=== PATIENT | female | born 1965 | race Two or more races ===

== ENCOUNTER 2025-04-15 15:42 | Inpatient (IN) | payer MEDICAID, OTHER ==
[~2025-04-15] VITALS: Ht 162.6 cm; Wt 112.0 kg
--- NOTE | 2025-04-15 16:01 | ED.PDOC ---
GI ASSESSMENT HPI Comments 59 y/o F, BIBA, with PMHx of DM, HTN, CVA, and thyroid disease presents to the ED for CC of nausea. Patient states, she has been experiencing symptoms of nausea and vomiting following taking Wegovy, at midnight today (04/15/25). Patient denies abdominal pain, melena, constipation, or hematemesis. No other associated symptoms, modifiers, recent injuries or sick contacts present at this time. 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 Family History Family History: Unknown Social History Smoker: Non-Smoker Alcohol: Denies ETOH Use Drugs: Denies Drug Use Lives In: Home Constitutional: denies: chills, diaphoresis, fatigue, fever, malaise, sweats, weakness, others EENTM: denies: blurred vision, double vision, ear bleeding, ear discharge, ear drainage, ear pain, ear ringing, eye pain, eye redness, hearing loss, mouth pain, mouth swelling, nasal discharge, nose bleeding, nose congestion, nose pain, photophobia, tearing, throat pain, throat swelling, voice changes, others Respiratory: denies: cough, hemoptysis, orthopnea, SOB at rest, shortness of breath, SOB with excertion, stridor, wheezing, others Cardiovascular: denies: chest pain, dizzy spells, diaphoresis, Dyspnea on exertion, edema, irregular heart beat, left arm pain, lightheadedness, palpitations, PND, syncope, others Gastrointestinal: reports: nausea, vomiting; denies: abdomen distended, abdominal pain, blood streaked bowels, constipated, diarrhea, dysphagia, difficulty swallowing, hematemesis, melena, poor appetite, poor fluid intake, rectal bleeding, rectal pain, others Genitourinary: denies: abnormal vagina bleeding, burning, dyspareunia, dysuria, flank pain, frequency, hematuria, incontinence, pain, , vagina discharge, urgency, others Neurological: denies: dizziness, fainting, headache, left sided numbness, left sided weakness, numbness, paresthesia, pre-existing deficit, right sided numbness, right sided weakness, seizure, speech problems, tingling, tremors, weakness, others Musculoskeletal: denies: back pain, gout, joint pain, joint swelling, muscle pain, muscle stiffness, neck pain, others Integumetry: denies: bruises, change in color, change in hair/nails, dryness, laceration, lesions, lumps, rash, wounds, others Allergic/Immunocompromised: denies: Difficulty Healing, Frequent Infections, Hives, Itching, others Hematologic/Lymphatic: denies: anemia, blood clots, easy bleeding, easy bruising, swollen glands, others Endocrine: denies: excessive hunger, excessive sweating, excessive thirst, excessive urination, flushing, intolerance to cold, intolerance to heat, unexplained weight gain, unexplained weight loss, others Psychiatric: denies: anxiety, bipolar disorder, depression, hopeless, panic disorder, schizophrenia, sleepless, suicidal, others All Other Systems: Reviewed and Negative Physical Exam General Appearance: Moderate Distress HEENT: Normal ENT Inspection, Pharynx Normal, TMs Normal Neck: Full Range of Motion, Non-Tender, Normal, Normal Inspection Respiratory: Chest Non-Tender, Lungs Clear, No Accessory Muscle Use, No Respiratory Distress, Normal Breath Sounds Cardiovascular: No Edema, No JVD, No Murmur, No Gallop, Normal Peripheral Pulses, Regular Rate/Rhythm Breast Exam: Deferred Gastrointestinal: Diffuse, No Organomegaly, No Pulsatile Mass, Normal Bowel Sounds, Soft, Tenderness Genitalia: Deferred Pelvic: Deferred Rectal: Deferred Extremities: No calf tenderness, Normal capillary refill, Normal inspection, Normal range of motion, Non-tender, No pedal edema Musculoskeletal : Apperance: Normal Neurologic: Alert, 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 Was a procedure done?: No GI differential Dx Differential Diagnosis: Gastritis/PUD, Gastroenteritis, Diabetes/ DKA, Drug toxicity, Electrolyte Imbalance, Bacterial, Viral X-Ray, Labs, Meds, VS Vital Signs Date Time Temp Pulse Resp B/P (MAP) Pulse Ox O2 Delivery O2 Flow Rate FiO2 04/15/25 16:11 113 19 95 Room Air* 0 21 04/15/25 16:11 98.4 113 19 141/96 (111) 95 98.4 04/15/25 15:48 98.9 122 18 170/98 99 98.9 Lab Test 04/15/25 16:06 04/15/25 16:03 Range/Units Urine Color Light-yellow Yellow Urine Clarity Clear Clear Urine pH 7.0 5.0-9.0 Urine Specific [place] 1.007 1.001-1.035 Urine Protein Trace H Negative Urine Ketones Negative Negative Urine Blood Negative Negative /uL Urine Nitrite Negative Negative Urine Bilirubin Negative Negative Urine Urobilinogen Normal Negative mg/dL Urine Leukocyte Esterase Negative Negative /uL Urine RBC <1 0 - 4 /hpf Urine Microscopic WBC 1 0-5 /HPF Urine Squamous Epithelial Cells Few <5 /hpf Urine Bacteria Few H None Seen /hpf Urine Glucose Normal Normal mg/dL White Blood Count 11.5 H 4.4-10.8 10^3/uL Red Blood Count 5.53 H 4.0-5.20 10^6/uL Hemoglobin 16.5 H 12.2-16.2 g/dL Hematocrit 47.4 H 36.0-46.0 % Mean Corpuscular Volume 85.7 80.0-100.0 fL Mean Corpuscular Hemoglobin 29.8 28.0-32.0 pg Mean Corpuscular Hemoglobin Concent 34.8 32.0-36.0 g/dL Red Cell Distribution Width 12.4 11.8-14.3 % Platelet Count 276 140-450 10^3/uL Mean Platelet Volume 7.7 6.9-10.8 fL Neutrophils (%) (Auto) 81.1 H 37.0-80.0 % Lymphocytes (%) (Auto) 13.6 10.0-50.0 % Monocytes (%) (Auto) 3.6 0.0-12.0 % Eosinophils (%) (Auto) 1.4 0.0-7.0 % Basophils (%) (Auto) 0.3 0.0-2.0 % Neutrophils # (Auto) 9.4 H 1.6-8.6 10 ^3/uL Lymphocytes # (Auto) 1.6 0.4-5.4 10 ^3/uL Monocytes # (Auto) 0.4 0-1.3 10 ^3/uL Eosinophils # (Auto) 0.2 0-0.8 10 ^3/uL Basophils # (Auto) 0 0-0.2 10 ^3/uL Nucleated Red Blood Cells 0.3 % Sodium Level 141 136-145 mmol/L Potassium Level 4.0 3.5-5.1 mmol/L Chloride Level 102 98-107 mmol/L Carbon Dioxide Level 28 20-31 mmol/L Anion Gap 11 5-15 Blood Urea Nitrogen 8 L 9-23 mg/dL Creatinine 0.66 0.550-1.02 mg/dL Glomerular Filtration Rate Calc 102 >90 mL/min BUN/Creatinine Ratio 12.1 10.0-20.0 Serum Glucose 115 H 74-106 mg/dL Calcium Level 10.2 8.7-10.4 mg/dL Current Medications Medications (Trade) Dose Ordered Sig/Wanda Route Start Time Stop Time Status Last Admin Sodium Chloride 500 ml @ 500 mls/hr Q1H ONCE IV 04/15/25 16:00 04/15/25 16:59 DC 04/15/25 16:08 CT ABD PEL: IMPRESSION: 1. Significant enlargement of the presumed uterus and/or adnexa with soft tissue density measuring up to 10.3 cm. 2. Recommend further evaluation with dedicated ultrasound of the pelvis consider follow-up MRI of the pelvis with and without contrast 3. Layering cholelithiasis. The patient had an IV Hep-Lock established The patient was given normal saline at a 500 cc bolus The patient's CBC shows an elevated white blood cell count of 11.5 The chemistry panel is within normal limits The urine test is negative At this time, the patient will be admitted to the hospitalist. There is a concern that the patient has cholelithiasis and intractable pain and vomiting The patient is being admitted Images Reviewed?: Images reviewed and evaluated by me Time of 1ST Reevaluation: 16:20 Reevaluation 1ST: Unchanged Patient Education/Counseling: Diagnosis, Treatment, Prognosis Family Education/Counseling: No Family Present SEPSIS Sepsis Screen Date sepsis recognized/suspect: Apr 15, 2025 Time Sepsis recognized/suspect: 1548 Recent Procedure: No On Antibiotic Therapy: No Respiratory Rate >20: No Heart Rate >90: Yes Temp<36 C (96.8 F) or >38.3 C: No SBP <90 or MAP <65 mmHG: No New Acute Mental Status Change: No Is the patient on CPAP, BIPAP,: No Physician Orders Heplock Iv (04/15/25 15:54) Ct Ab Pel Wo Con-No Oral Or Iv (04/15/25 15:57) Vital Signs Date Time Temp Pulse Resp B/P (MAP) Pulse Ox O2 Delivery O2 Flow Rate FiO2 04/15/25 16:11 113 19 95 Room Air* 0 21 04/15/25 16:11 98.4 113 19 141/96 (111) 95 98.4 04/15/25 15:48 98.9 122 18 170/98 99 98.9 Laboratory Tests Test 04/15/25 16:03 White Blood Count 11.5 10^3/uL (4.4-10.8) H Medications Medications Dose Ordered Sig/Wanda Route Start Time Stop Time Status Last Admin Dose Admin Sodium Chloride 500 ml @ 500 mls/hr Q1H ONCE IV 04/15/25 16:00 04/15/25 16:59 DC 04/15/25 16:08 Departure 1 Departure Time of Disposition: 17:59 Impression: Primary Impression: Intractable abdominal pain Additional Impressions: Acute vomiting Cholelithiasis Qualified Codes: K80.20 - Calculus of gallbladder without cholecystitis without obstruction Disposition: ADMITTED INPATIENT Admit to: Med Surg Condition: Fair Critical Care Note Critical Care Time?: No Stability Stability form required: Yes Unstable for transfer: ED Physician Assesment (Clinical assesment) Heart Score Heart Score: Heart Score Response (Comments) Value History N/A 0 EKG N/A 0 Age N/A 0 Risk Factors N/A 0 Troponin N/A 0 Total 0 I personally scribed for IESHA HILLIARD MD ([email or web address]) on 04/15/25 at 16:01. Electronically submitted by Julita Christie [email or web address]). I personally scribed for IESHA HILLIARD MD ([email or web address]) on 04/15/25 at 17:17. Electronically submitted by Julita Christie ([email or web address]). I personally scribed for IESHA HILLIARD MD ([email or web address]) on 04/15/25 at 17:20. Electronically submitted by Julita Christie [email or web address]). IESHA HILLIARD MD Apr 15, 2025 16:01
[2025-04-15] MEDS: SODIUM CHLORIDE 0.9% 500 ML IV ONE ×2 (16:08→21:00)
[2025-04-15 16:11] VITALS: PULSE 113; RESP 19; O2SAT 95
[2025-04-15 16:20] LABS: Hematocrit 47.4 % (36.0-46.0); Hemoglobin 16.5 g/dL (12.2-16.2); Mean Corpuscular Hemoglobin 29.8 pg (28.0-32.0); Mean Corpuscular Volume 85.7 fL (80.0-100.0); Nucleated Red Blood Cells % 0.3 %
[2025-04-15 16:28] LABS: Chloride 102 mmol/L (98-107); Potassium 4.0 mmol/L (3.5-5.1); Sodium 141 mmol/L (136-145)
[2025-04-15 16:29] LABS: Anion Gap 11 (5-15); Calcium 10.2 mg/dL (8.7-10.4); Carbon Dioxide 28 mmol/L (20-31)
[2025-04-15 16:34] LABS: BUN/Creatinine Ratio 12.1 (10.0-20.0)
--- NOTE | 2025-04-15 16:56 | DVH ---
EXAM: CT CT AB PEL WO CON-NO ORAL OR IV INDICATION: pain TECHNIQUE: Volumetric multidetector CT images of the abdomen and pelvis were obtained without contras t. All CT scans at this facility use dose modulation, iterative reconstruction, and/or weight based d osing when appropriate to reduce radiation dose to as low as reasonably achievable. COMPARISON: None FINDINGS: [LOWER CHEST]: The partially visualized lung bases are clear without a pleural effusion. The cardiac size is normal without pericardial effusion. [LIVER]: Normal hepatic size without suspicious focal lesion. [GALLBLADDER AND BILIARY TREE]: Layering cholelithiasis. [SPLEEN]: Unremarkable. [PANCREAS]: Unremarkable. [ADRENAL GLANDS]: Unremarkable [KIDNEYS]: No hydronephrosis. No nephroureterolithiasis. [BLADDER]: Decompressed [REPRODUCTIVE ORGANS]: Significant enlargement of the presumed uterus and/or adnexa with soft tissue density measuring approximately 8.8 x 10.3 x 7.8 cm. Mild stool burden. [BOWEL/MESENTERY]: Stomach is normal. No CT evidence of bowel obstruction. Mild stool burden. [ASCITES]: Absent [LYMPHADENOPATHY]: No pathologically enlarged lymph nodes by CT size criteria [VASCULATURE]: No aneurysmal dilatation. vascular calcifications. [ABDOMINAL WALL]: Unremarkable. [MUSCULOSKELETAL]: No acute fracture or aggressive focal osseous lesion. Multifocal degenerative sorenson ge of the visualized spine. transitional anatomy with sacralization of the L5. IMPRESSION: 1. Significant enlargement of the presumed uterus and/or adnexa with soft tissue density measuring up to 10.3 cm. 2. Recommend further evaluation with dedicated ultrasound of the pelvis consider follow-up MRI of the pelvis with and without contrast 3. Layering cholelithiasis.
[2025-04-15 17:07] LABS: Blood Urea Nitrogen 8 mg/dL (9-23); Glucose 115 mg/dL (74-106)
[2025-04-15 17:38] LABS: Urine Protein, UAD TRACE (Negative)
--- NOTE | 2025-04-15 20:59 | DVHHPRES ---
History of Present Illness Resident Creating Document: ALYSSA FLORES RESIDENT History of Present Illness Ms. Mackenzie Is a 59-year-old female with a prior medical history of ischemic stroke in 2007, hypertension, hyperthyroidism, obesity on WeGovy, and type 2 diabetes mellitus, who presents today with chief complaint of nausea and vomiting. The patient's refers persistent nausea and vomiting since 7 am. She states she has been unable to keep anything down all day. Additionally refers minor cramp like generalized abdominal pain, 5/10 in intensity, without aggravating or relieving factors. She denies fever, bowel movements, diarrhea, palpitations, bloody vomit, bloody bowel movements, chest pain, exposure to sick contacts or contaminated food. Due to persistence of emetic episodes, she sought medical attention at the emergency department. On evaluation in the ED, she was afebrile, tachycardic, and hypertensive. Initial labs show leukocytosis with neutrophilia, signs of dehydration, and hyperglycemia. UA shows no significant findings. Abdomen/pelvis CT shows enlargement of the presumed uterus and/or adnexa was soft tissue density measuring up to 10.3 cm and layering cholelithiasis. The patient placed on NPO, started on IV fluids, IV antiemetic medication, and IV antibiotics. She was admitted for further workup and management. Prior medical history: Ischemic stroke in 2007, hypertension, hyperthyroidism, type 2 diabetes mellitus Surgical history: three C sections Allergies: Denies Social history: Denies drug, alcohol, and tobacco use. States she lives with her mother and feels safe. Review of Systems Review of Systems Constitutional: Denies weight loss, fever and chills. HEENT: Denies changes in vision and hearing. Respiratory: Denies shortness of breath and cough Cardiovascular: Denies chest discomfort or palpitations GI: Refers nausea, vomiting, and mild abdominal pain, Denies abdominal distention, diarrhea : Denies dysuria and urinary frequency. Musculoskeletal: Denies symptoms Skin: Denies rash and pruritus. Neurological: denies headache vision or hearing problems Allergies: Coded Allergies: NO KNOWN ALLERGIES (Unverified , 04/15/25) Exam Vital Signs Vital Signs Date Time Temp Pulse Resp B/P (MAP) Pulse Ox O2 Delivery O2 Flow Rate FiO2 04/15/25 16:11 113 19 95 Room Air* 0 21 04/15/25 16:11 98.4 141/96 (111) 98.4 Exam General: The patient alert and oriented in person place and time. Patient following commands HEENT: Normocephalic, atraumatic, normal reactive pupils, EOM intact, pink conjunctiva, pink dry mucous membrane Respiratory/pulmonary: Bilateral chest expansion, no pain on palpation of chest wall, clear lungs bilaterally, vesicular murmurs present in almost all lung trejo, no associated crackles or wheezes. Cardiovascular: Tachycardia, Normal RRR, normal S1 and S2, no murmurs Abdomen: Obese, Abdomen nondistended, hyperactive bowel sounds, soft, mild pain on palpation of abdominal quadrant, no palpable masses. Extremities: No deformities, there is no peripheral edema present at the lower extremities, normal pulses Skin: No rashes or pruritus, there is no sacral edema present at this time. Neurological: Intact cranial nerves with no focal neurologic deficits Labs/Xrays Labs Test 04/15/25 16:06 04/15/25 16:03 Range/Units Urine Color Light-yellow Yellow Urine Clarity Clear Clear Urine pH 7.0 5.0-9.0 Urine Specific [place] 1.007 1.001-1.035 Urine Protein Trace H Negative Urine Ketones Negative Negative Urine Blood Negative Negative /uL Urine Nitrite Negative Negative Urine Bilirubin Negative Negative Urine Urobilinogen Normal Negative mg/dL Urine Leukocyte Esterase Negative Negative /uL Urine RBC <1 0 - 4 /hpf Urine Microscopic WBC 1 0-5 /HPF Urine Squamous Epithelial Cells Few <5 /hpf Urine Bacteria Few H None Seen /hpf Urine Glucose Normal Normal mg/dL White Blood Count 11.5 H 4.4-10.8 10^3/uL Red Blood Count 5.53 H 4.0-5.20 10^6/uL Hemoglobin 16.5 H 12.2-16.2 g/dL Hematocrit 47.4 H 36.0-46.0 % Mean Corpuscular Volume 85.7 80.0-100.0 fL Mean Corpuscular Hemoglobin 29.8 28.0-32.0 pg Mean Corpuscular Hemoglobin Concent 34.8 32.0-36.0 g/dL Red Cell Distribution Width 12.4 11.8-14.3 % Platelet Count 276 140-450 10^3/uL Mean Platelet Volume 7.7 6.9-10.8 fL Neutrophils (%) (Auto) 81.1 H 37.0-80.0 % Lymphocytes (%) (Auto) 13.6 10.0-50.0 % Monocytes (%) (Auto) 3.6 0.0-12.0 % Eosinophils (%) (Auto) 1.4 0.0-7.0 % Basophils (%) (Auto) 0.3 0.0-2.0 % Neutrophils # (Auto) 9.4 H 1.6-8.6 10 ^3/uL Lymphocytes # (Auto) 1.6 0.4-5.4 10 ^3/uL Monocytes # (Auto) 0.4 0-1.3 10 ^3/uL Eosinophils # (Auto) 0.2 0-0.8 10 ^3/uL Basophils # (Auto) 0 0-0.2 10 ^3/uL Nucleated Red Blood Cells 0.3 % Sodium Level 141 136-145 mmol/L Potassium Level 4.0 3.5-5.1 mmol/L Chloride Level 102 98-107 mmol/L Carbon Dioxide Level 28 20-31 mmol/L Anion Gap 11 5-15 Blood Urea Nitrogen 8 L 9-23 mg/dL Creatinine 0.66 0.550-1.02 mg/dL Glomerular Filtration Rate Calc 102 >90 mL/min BUN/Creatinine Ratio 12.1 10.0-20.0 Serum Glucose 115 H 74-106 mg/dL Calcium Level 10.2 8.7-10.4 mg/dL SEPSIS Sepsis Screen Date sepsis recognized/suspect: Apr 15, 2025 Time Sepsis recognized/suspect: 1548 Recent Procedure: No On Antibiotic Therapy: No Respiratory Rate >20: No Heart Rate >90: Yes Temp<36 C (96.8 F) or >38.3 C: No SBP <90 or MAP <65 mmHG: No New Acute Mental Status Change: No Is the patient on CPAP, BIPAP,: No Physician Orders Heplock Iv (04/15/25 15:54) Ct Ab Pel Wo Con-No Oral Or Iv (04/15/25 15:57) Blood Culture (04/15/25 20:25) Magnesium (04/15/25 20:25) Drug Screen (04/15/25 20:25) Hepatic Panel (04/15/25 20:25) Complete Blood Count (04/16/25 04:00) Basic Metabolic Panel (04/16/25 04:00) Lactic Acid W/ Reflex Order (04/15/25 20:25) Phosphorus (04/15/25 20:25) Thyroid Stimulating Hormone (04/15/25 20:25) Vitamin B12 (04/15/25 20:25) Vitamin D, 25-Hydroxy (04/15/25 20:25) Hemoglobin A1c (04/15/25 20:25) Admit (04/15/25 20:48) Allergies (04/15/25 20:48) Code Status (04/15/25 20:48) Npo (Nothing By Mouth) Diet (04/16/25 Breakfast) Condition: Stable (04/15/25 20:48) Stat Ekg For Chest Pain (04/15/25 20:48) Notify Md Of Changes From Base (04/15/25 20:48) Emergency Dysrhythmia Protocol (04/15/25 20:48) Rhythm Strips Once Every Shift (04/15/25 20:48) NS (04/15/25 21:00) NS (04/15/25 21:00) Ketorolac Injection (Toradol Injection) (04/15/25 21:00) Ondansetron Hcl (Zofran) (04/15/25 21:00) Ondansetron Hcl (Zofran) (04/15/25 21:00) Pantoprazole (Protonix) (04/15/25 21:00) Pantoprazole (Protonix) (04/16/25 10:00) Ob Trans Vaginal Us (04/15/25 20:48) Enoxaparin Sodium (Lovenox) (04/15/25 22:00) Propranolol Hcl Tablet (Inderal Tablet) (04/16/25 10:00) Hydralazine Hcl Tablet (Apresoline Table (04/15/25 22:00) Vital Signs Date Time Temp Pulse Resp B/P (MAP) Pulse Ox O2 Delivery O2 Flow Rate FiO2 04/15/25 16:11 113 19 95 Room Air* 0 21 04/15/25 16:11 98.4 113 19 141/96 (111) 95 98.4 04/15/25 15:48 98.9 122 18 170/98 99 98.9 Laboratory Tests Test 04/15/25 16:03 White Blood Count 11.5 10^3/uL (4.4-10.8) H Medications Medications Dose Ordered Sig/Wanda Route Start Time Stop Time Status Last Admin Dose Admin Sodium Chloride 500 ml @ 500 mls/hr Q1H ONCE IV 04/15/25 16:00 04/15/25 16:59 DC 04/15/25 16:08 500 MLS/HR Assessment/Plan Assessment/Plan Assessment and Plan: Acute Infectious Gastroenteritis Dehydration secondary to above - NS 500 cc IV Bolus x 2 - NS 100 c/hr maintenance - Metronidazole 500 mg IV q8 hours - Ceftriaxone 1 g IV daily - Zofran IV q 4 hours PRN - NPO Possible Uterine Mass - Abdomen/pelvis CT: Significant enlargement of the presumed uterus and/or adnexa was soft tissue density measuring up to 10.3 cm - Transvaginal ultrasound ordered Cholelithiasis without Cholecystitis - Abdomen/pelvis CT: Layering cholelithiasis Hypertension - Continue Propranolol 80 mg PO daily - Continue Hydralazine 50 mg p.o. t.i.d. Type 2 Diabetes Mellitus, HbA1c 4.9 - Mild SSI - Accu-cheks - Consistent Carbohydrate Diet once NPO lifted Hyperthyroidism Rule out Hyperthyroidism crisis - Continue Methimazole 5 mg PO daily - Ordered TSH History of Ischemic Stroke - On Eliquis - Enoxaparin Therapeutic Dose (1 mg/kg) Morbid Obesity, BMI 43.5 kg/m2 - Jermaine - I have counseled the patient on healthy lifestyle modifications Diet: NPO DVT prophylaxis: Patient is on Lovenox therapeutic dose GI prophylaxis: Protonix 40 mg IV daily Case discussed with Dr. Lance Goals of care discussed with the patient for over 25 minutes. Full code. Plan discussed with: Patient, Other (Nurses) My Orders Orders - ALYSSA FLORES RESIDENT Procedure Category Date Status Time Blood Culture RADHA 04/15/25 Logged 20:25 Magnesium LAB 04/15/25 In Process 20:25 Drug Screen LAB 04/15/25 In Process 20:25 Hepatic Panel LAB 04/15/25 In Process 20:25 Complete Blood Count LAB 04/16/25 Verified 04:00 Basic Metabolic Panel LAB 04/16/25 Verified 04:00 Lactic Acid W/ Reflex LAB 04/15/25 Logged Order 20:25 Phosphorus LAB 04/15/25 In Process 20:25 Thyroid Stimulating LAB 04/15/25 In Process Hormone 20:25 Vitamin B12 LAB 04/15/25 In Process 20:25 Vitamin D, 25-Hydroxy LAB 04/15/25 In Process 20:25 Hemoglobin A1c LAB 04/15/25 In Process 20:25 Admit ADMIT 04/15/25 Verified 20:48 Allergies ZEUS 04/15/25 Verified 20:48 Code Status CODE 04/15/25 Verified 20:48 Npo (Nothing By DIET 04/16/25 Verified Mouth) Diet Breakfast Condition: Stable ZEUS 04/15/25 Verified 20:48 Stat Ekg For Chest ZEUS 04/15/25 Verified Pain 20:48 Notify Md Of Changes [facility] 04/15/25 Verified From Base 20:48 Emergency Dysrhythmia ZEUS 04/15/25 Verified Protocol 20:48 Rhythm Strips Once ZEUS 04/15/25 Verified Every Shift 20:48 NS PHA 04/15/25 Verified 21:00 NS PHA 04/15/25 Verified 21:00 Ketorolac Injection PHA 04/15/25 Verified (Toradol Injection) 21:00 Ondansetron Hcl PHA 04/15/25 Verified (Zofran) 21:00 Ondansetron Hcl PHA 04/15/25 Verified (Zofran) 21:00 Pantoprazole PHA 04/15/25 Verified (Protonix) 21:00 Pantoprazole PHA 04/16/25 Verified (Protonix) 10:00 Ob Trans Vaginal Us US 04/15/25 Verified 20:48 Enoxaparin Sodium PHA 04/15/25 Verified (Lovenox) 22:00 Propranolol Hcl PHA 04/16/25 Verified Tablet (Inderal 10:00 Hydralazine Hcl PHA 04/15/25 Verified Tablet (Apresoline 22:00 Date of Service: Apr 15, 2025 Billing Provider: KITA BYRD MD Common Visit Codes: 24902-NHYEKIK INP/OBS CARE (HIGH) Secondary Visit Codes: 69898-EAJJAWOD CARE PLAN 30 MINUTES ALYSSA FLORES RESIDENT Apr 15, 2025 20:59 PRASANNA PERALTA RESIDENT Apr 16, 2025 08:37
[2025-04-15] MEDS ORDERED: DEXTROSE (50%) 50ML SYRG IV PRN (21:00)
[2025-04-15 21:11] LABS: Albumin 4.5 g/dL (3.2-4.8); Alkaline Phosphatase 114.0 U/L (46-116); Bilirubin, Direct 0.3 mg/dL (<0.3); Bilirubin, Total 0.9 mg/dL (0.2-1.0); Magnesium 1.9 mg/dL (1.6-2.6); Total Protein 7.7 g/dL (5.7-8.2)
[2025-04-15 21:15] LABS: Alanine Aminotransferase 50.0 U/L (7-40)
[2025-04-15 21:45] LABS: Cannabinoid Screen, Urine Neg (NEGATIVE)
[2025-04-15 21:46] LABS: Amphetamine Screen, Urine Neg (NEGATIVE); Barbiturate Scree,Urine Neg (NEGATIVE); Benzodiazephine Screen, Urine Neg (NEGATIVE); Cocaine Screen, Urine Neg (NEGATIVE); Opiate Scree,Urine Neg (NEGATIVE); Phencyclidine Screen, Urine Neg (NEGATIVE)
[2025-04-15 21:54] LABS: Albumin 4.6 g/dL (3.2-4.8); Alkaline Phosphatase 115 U/L (46-116); Anion Gap 13 (5-15); BUN/Creatinine Ratio 16.0 (10.0-20.0); Blood Urea Nitrogen 12 mg/dL (9-23); Calcium 10.3 mg/dL (8.7-10.4); Carbon Dioxide 26 mmol/L (20-31); Chloride 102 mmol/L (98-107); Glucose 101 mg/dL (74-106); Potassium 4.5 mmol/L (3.5-5.1); Sodium 141 mmol/L (136-145); Total Protein 7.7 g/dL (5.7-8.2)
[2025-04-15 21:55] LABS: Bilirubin, Total 1.0 mg/dL (0.2-1.0)
[2025-04-15 21:56] LABS: Alanine Aminotransferase 57 U/L (7-40)
--- NOTE | 2025-04-15 22:00 | DVH ---
INDICATION: Eval possible uterine mass TECHNIQUE: Multiple real-time grayscale transabdominal sonographic images along with color and duplex Doppler of the uterus and ovaries were obtained. COMPARISON: None FINDINGS: The uterus measures 8.6 x 4.9 by 4.7 cm cm. The endometrial stripe measures 1.8 mm. Hypoech oic structure within the wall of the uterus measuring 2.3 x 1.8 x 2.5 cm may represent a fibroid. The right ovary not visible The left ovary not visible IMPRESSION: 1. Ovaries not visible 2. Exam difficult due to prolapsed bladder. 3. Bladder volume 356.3 mL.
[2025-04-15] MEDS: ONDANSETRON HCL 4 MG/2 ML VIAL IV ONE (22:40)
[2025-04-15] MEDS: PANTOPRAZOLE 40 MG/10 ML VIAL INJ IV ONE (22:40)
[2025-04-15] MEDS: ENOXAPARIN SOD 120 MG/0.8 ML SYRINGE SC ONE (22:40)
[2025-04-16] VITALS (9 sets, daily range): BP systolic 128–179; BP diastolic 80–100; PULSE 72–97; RESP 14–18; TEMP 97.6–98.2; O2SAT 90–98
[2025-04-16] MEDS: InsuLIN REG 1unit/0.01ml Soln (100units/ml) SC SCH
[2025-04-16] MEDS: ACCU-CHEK COMFORT CURVE STRIP VI SCH
[2025-04-16] MEDS: PROPRANOLOL HCL 20 MG TAB PO ONE (00:57)
[2025-04-16] MEDS: hydrALAZINE HCL 20 MG/ML VL IV ONE (01:09)
[2025-04-16] MEDS: SODIUM CHLORIDE 0.9% 1,000 ML IV SCH (02:00)
[2025-04-16] MEDS: KETOROLAC TROMETH 30 MG/ML 1ML VIAL IV PRN (03:56)
[2025-04-16 07:37] LABS: Hematocrit 42.9 % (36.0-46.0); Hemoglobin 14.9 g/dL (12.2-16.2); Mean Corpuscular Hemoglobin 30.0 pg (28.0-32.0); Mean Corpuscular Volume 86.5 fL (80.0-100.0); Nucleated Red Blood Cells % 0.1 %
[2025-04-16 07:47] LABS: Anion Gap 11 (5-15); Carbon Dioxide 26 mmol/L (20-31); Chloride 104 mmol/L (98-107); Sodium 141 mmol/L (136-145)
[2025-04-16 07:48] LABS: Calcium 9.6 mg/dL (8.7-10.4)
--- NOTE | 2025-04-16 07:52 | DVH ---
INDICATION: r/o cholecystitis. TECHNIQUE: Multiple real-time sonographic images of the abdomen were obtained. COMPARISON: None FINDINGS: The liver is increased in echogenicity. The liver measures 16.6 cm. No intrahepatic biliary ductal dilatation is noted. The gallbladder wall measures 0.2 cm and is unremarkable. There are multiple gallstones. The common duct measures 0.4 cm and is unremarkable. No pericholecystic fluid is noted. The right kidney measures 11.4 cm. No hydronephrosis. The pancreas is not well visualized due to obscuration from bowel gas. The visualized portions of the IVC and aorta are grossly unremarkable. IMPRESSION: 1. Cholelithiasis without sonographic evidence of acute cholecystitis. 2. Hepatic steatosis.
[2025-04-16 07:53] LABS: BUN/Creatinine Ratio 10.8 (10.0-20.0); Glucose 101 mg/dL (74-106)
[2025-04-16 07:54] LABS: Blood Urea Nitrogen 7 mg/dL (9-23); Potassium 3.5 mmol/L (3.5-5.1)
[2025-04-16] MEDS: PANTOPRAZOLE 40 MG/10 ML VIAL INJ IV SCH (09:22)
[2025-04-16] MEDS: methIMAzole 5 MG TAB PO SCH (09:22)
[2025-04-16] MEDS: PROPRANOLOL HCL 20 MG TAB PO SCH (09:23)
[2025-04-16] MEDS: ENOXAPARIN SOD 100 MG/1 ML SYRINGE SC SCH (09:28)
[2025-04-16 09:57] LABS: Hepatitis B Surface Antigen Negative (Negative)
[2025-04-16 10:20] LABS: Hepatitis C Antibody Negative (Negative)
[2025-04-16 10:38] LABS: Free T4 (Free Thyroxine) 1.82 ng/dL (0.89-1.76)
[2025-04-16] MEDS: ACETAMINOPHEN 325 MG TAB PO PRN (12:01)
[2025-04-16] MEDS: ENALAPRIL MALEATE 10 MG TAB PO ONE (12:02)
[2025-04-16] MEDS: hydroCHLOROthiazide 25 MG TAB PO ONE (12:02)
[2025-04-16] MEDS: ONDANSETRON HCL 4 MG/2 ML VIAL IV PRN (15:55)
--- NOTE | 2025-04-16 18:33 | DVHPNRES ---
Progress Note Date Seen: Apr 16, 2025 Resident Creating Document: KENA TURNER Medical Necessity Reason Pt with a Central, PICC or Fol: No (RN) Subjective Review of Systems 59-year-old female with a prior medical history of ischemic stroke in 2007, hypertension, hyperthyroidism, obesity on WeGovy, and type 2 diabetes mellitus, who presents today with chief complaint of nausea and vomiting. The patient reports intermittent episodes of vomiting since starting Wegovy 4 months ago at 0.6 mg weekly, with a dose increase to 1.5 mg three months ago. However, since 7:00 AM today, she has experienced persistent nausea and more than 30 episodes of non-bloody, non-bilious vomiting. She states she has been unable to tolerate any oral intake throughout the day. Additionally, she describes mild, cramp- like, generalized abdominal pain rated 5/10 in intensity, without identifiable aggravating or relieving factors. She denies fever, diarrhea, palpitations, hematemesis, hematochezia, chest pain, recent sick contacts, or ingestion of contaminated food. Due to the persistence of emetic episodes, she presented to the emergency department for evaluation. On arrival, she was afebrile, tachycardic, and hypertensive. Initial laboratory studies revealed leukocytosis with neutrophilia, signs of dehydration, and hyperglycemia. Urinalysis was unremarkable. CT of the abdomen and pelvis demonstrated an enlarged presumed uterus and/or adnexal soft tissue density measuring up to 10.3 cm, as well as layering cholelithiasis. Patient seen and examined at bedside. Patient is alert and oriented to time, place person and responding to all questions. Constitutional: Denies weight loss, fever and chills. Eyes: No Pain, No Vision change, No Conjunctivae inflammation, No Eyelid inflammation, No Other, No Redness ENT: No Ear pain, No Ear discharge, No Nose pain, No Nose discharge, No Nose congestion, No Mouth pain, No Mouth swelling, No Throat pain, No Throat swelling, No Other Cardiovascular: No Chest Pain, No Palpitations, No Orthopnea, No Paroxysmal No Dyspnea, No Edema, No Lt Headedness, No Other Respiratory: No Cough, No Dry, No Shortness of breath, No SOB with exertion, No Wheezing, No Hemoptysis, No Pleuritic Pain, No Sputum, No Other Gastrointestinal: Nausea, Vomiting, No Abdominal Pain, No Diarrhea, No Constipation, No Melena, No Hematochezia, No Other Genitourinary: No Dysuria, No Frequency, No Incontinence, No Hematuria, No Retention, No Other Musculoskeletal: No other, No neck pain, No shoulder pain, No arm pain, No back pain, No hand pain, No leg pain, No foot pain Skin: No Rash, No Lesions, No Jaundice, No Bruising, No Other Objective vital signs Vital Sign Date Time Temp Pulse Resp B/P (MAP) Pulse Ox O2 Delivery O2 Flow Rate FiO2 04/16/25 17:29 97.8 79 14 156/97 (116) 90 97.8 04/16/25 08:00 Room Air* 0 21 Total Intake and Output 04/15/25 04/15/25 04/16/25 15:00 23:00 07:00 Intake Total 500 ml 500 ml Balance 500 ml 500 ml medications Current Medications Medications Dose Ordered Sig/Wanda Route Start Time Stop Time Status Last Admin Dose Admin Ketorolac Tromethamine 15 mg Q6HPRN PRN IV 04/15/25 21:00 04/20/25 20:59 04/16/25 03:56 15 MG Ondansetron HCl 4 mg Q4HPRN PRN IV 04/15/25 21:00 04/16/25 15:55 4 MG Pantoprazole Sodium 40 mg DAILY IV 04/16/25 10:00 04/16/25 09:22 40 MG Enoxaparin Sodium 120 mg Q12HR SC 04/16/25 10:00 04/16/25 09:28 120 MG Propranolol HCl 80 mg DAILY PO 04/16/25 10:00 04/16/25 09:23 80 MG Hydralazine HCl 50 mg TID PO 04/15/25 22:00 04/16/25 14:25 50 MG Methimazole 5 mg DAILY PO 04/16/25 10:00 04/16/25 09:22 5 MG Diagnostic Test (Pha) 1 strip Q6HR 04/16/25 00:00 04/16/25 17:25 1 STRIP Insulin Human Regular Q6HR SC 04/16/25 00:00 Dextrose 50 ml UD PRN IV 04/15/25 21:00 Metronidazole 100 ml @ 100 mls/hr Q8HR IV 04/15/25 22:00 04/16/25 14:25 100 MLS/HR Ceftriaxone Sodium 50 ml @ 100 mls/hr DAILY@09 IV 04/16/25 09:00 04/16/25 09:23 100 MLS/HR Enalapril Maleate 10 mg DAILY PO 04/17/25 10:00 Hydrochlorothiazide 25 mg DAILY PO 04/17/25 10:00 Acetaminophen 650 mg Q4HP PRN PO 04/16/25 10:30 04/16/25 17:25 650 MG Examination General: The patient alert and oriented in person place and time. Patient following commands HEENT: Normocephalic, atraumatic, normal reactive pupils, EOM intact, pink conjunctiva, pink dry mucous membrane Respiratory/pulmonary: Bilateral chest expansion, no pain on palpation of chest wall, clear lungs bilaterally, vesicular murmurs present in almost all lung trejo, no associated crackles or wheezes. Cardiovascular: Tachycardia, Normal RRR, normal S1 and S2, no murmurs Abdomen: Obese, Abdomen nondistended, hyperactive bowel sounds, soft, mild pain on palpation of abdominal quadrant, no palpable masses. Extremities: No deformities, there is no peripheral edema present at the lower extremities, normal pulses Skin: No rashes or pruritus, there is no sacral edema present at this time. Neurological: Intact cranial nerves with no focal neurologic deficits laboratory and microbiology Laboratory Tests 04/16/25 06:46 Test 04/16/25 06:46 Range/Units Serum Glucose 101 74-106 mg/dL Labs and/or images reviewed: Labs reviewed by me, Image(s) reviewed by me Problem List/Assessment/Plan Problem List/Assessment/Plan Acute intractable vomiting due to medication side effect Morbid Obesity, BMI 43.5 kg/m2 - Jermaine - I have counseled the patient on healthy lifestyle modifications Acute Infectious Gastroenteritis Dehydration secondary to above - NS 500 cc IV Bolus x 2 - NS 100 c/hr maintenance - Metronidazole 500 mg IV q8 hours - Ceftriaxone 1 g IV daily - Zofran IV q 4 hours PRN - NPO Possible Uterine Mass - Abdomen/pelvis CT: Significant enlargement of the presumed uterus and/or adnexa was soft tissue density measuring up to 10.3 cm - Transvaginal ultrasound ordered Cholelithiasis without Cholecystitis - Abdomen/pelvis CT: Layering cholelithiasis Hypertension - Continue Propranolol 80 mg PO daily - Continue Hydralazine 50 mg p.o. t.i.d. Type 2 Diabetes Mellitus, HbA1c 4.9 - Mild SSI - Accu-cheks - Consistent Carbohydrate Diet once NPO lifted Hyperthyroidism Rule out Hyperthyroidism crisis - Continue Methimazole 5 mg PO daily - Ordered TSH History of Ischemic Stroke - On Eliquis - Enoxaparin Therapeutic Dose (1 mg/kg) Diet: Soft DVT prophylaxis: Patient is on Lovenox therapeutic dose GI prophylaxis: Protonix 40 mg IV daily Goals of care: Full code, discussed for >16 minutes on 04/16/25 Plan discussed with patient Plan discussed with Dr. Stauffer Plan discussed with: Patient, Other (RN) My Orders My Orders Orders - KENA TURNER Procedure Category Date Status Time Soft Diet DIET 04/16/25 Transmitted Dinner Complete Blood Count LAB 04/17/25 Verified 04:00 Comprehensive LAB 04/17/25 Verified Metabolic Panel 04:00 Date of Service: Apr 16, 2025 Billing Provider: JOSE J STAUFFER MD Common Visit Codes: [id number] INP/OBS CARE(HIGH) KENA TURNER Apr 16, 2025 18:33 JOSE J STAUFFER MD Apr 16, 2025 18:34
[2025-04-16] MEDS: MELATONIN 5 MG TAB PO ONE (22:11)
[2025-04-17 01:00] VITALS: BP 157/88; PULSE 78; RESP 17; TEMP 97.8; O2SAT 93
[2025-04-17 05:00] VITALS: BP 160/92; PULSE 78; RESP 18; TEMP 97.7; O2SAT 93
[2025-04-17 05:42] LABS: Alanine Aminotransferase 32 U/L (7-40); Albumin 3.8 g/dL (3.2-4.8); Alkaline Phosphatase 84 U/L (46-116); Anion Gap 8 (5-15); BUN/Creatinine Ratio 11.9 (10.0-20.0); Calcium 9.3 mg/dL (8.7-10.4); Carbon Dioxide 28 mmol/L (20-31); Chloride 103 mmol/L (98-107); Sodium 139 mmol/L (136-145); Total Protein 6.4 g/dL (5.7-8.2)
[2025-04-17 05:43] LABS: Bilirubin, Total 0.9 mg/dL (0.2-1.0)
[2025-04-17 05:48] LABS: Hematocrit 40.4 % (36.0-46.0); Hemoglobin 14.1 g/dL (12.2-16.2); Mean Corpuscular Hemoglobin 29.9 pg (28.0-32.0); Mean Corpuscular Volume 85.7 fL (80.0-100.0); Nucleated Red Blood Cells % 0.0 %
[2025-04-17 05:54] LABS: Blood Urea Nitrogen 8 mg/dL (9-23); Glucose 113 mg/dL (74-106); Potassium 3.3 mmol/L (3.5-5.1)
[2025-04-17] MEDS: POTASSIUM EFFERVESENT TAB 25 MEQ PO ONE (06:55)
[2025-04-17] MEDS ORDERED: DEXTROSE (50%) 50ML SYRG IV PRN (07:15)
[2025-04-17 09:22] VITALS: BP 127/81; PULSE 81; RESP 16; TEMP 98.3; O2SAT 94
[2025-04-17] MEDS: ENALAPRIL MALEATE 10 MG TAB PO SCH (09:29)
[2025-04-17] MEDS: hydroCHLOROthiazide 25 MG TAB PO SCH (09:30)
--- NOTE | 2025-04-17 10:35 | DVHDSRES ---
Discharge Summary Date of Admission Resident Creating Document: KENA TURNER RESIDENT Apr 15, 2025 at 20:48 Date of Discharge: Apr 17, 2025 Admitting Diagnosis intractable nausea and vomiting Labs/Diagnostic Data: Laboratory Results Test 04/17/25 05:04 04/16/25 23:39 04/16/25 06:46 04/15/25 20:53 White Blood Count 7.8 10^3/uL (4.4-10.8) Red Blood Count 4.72 10^6/uL (4.0-5.20) Hemoglobin 14.1 g/dL (12.2-16.2) Hematocrit 40.4 % (36.0-46.0) Mean Corpuscular Volume 85.7 fL (80.0-100.0) Mean Corpuscular Hemoglobin 29.9 pg (28.0-32.0) Mean Corpuscular Hemoglobin Concent 34.9 g/dL (32.0-36.0) Red Cell Distribution Width 12.6 % (11.8-14.3) Platelet Count 199 10^3/uL (140-450) Mean Platelet Volume 7.5 fL (6.9-10.8) Neutrophils (%) (Auto) 75.8 % (37.0-80.0) Lymphocytes (%) (Auto) 17.2 % (10.0-50.0) Monocytes (%) (Auto) 5.2 % (0.0-12.0) Eosinophils (%) (Auto) 1.5 % (0.0-7.0) Basophils (%) (Auto) 0.3 % (0.0-2.0) Neutrophils # (Auto) 5.9 10 ^3/uL (1.6-8.6) Lymphocytes # (Auto) 1.3 10 ^3/uL (0.4-5.4) Monocytes # (Auto) 0.4 10 ^3/uL (0-1.3) Eosinophils # (Auto) 0.1 10 ^3/uL (0-0.8) Basophils # (Auto) 0 10 ^3/uL (0-0.2) Nucleated Red Blood Cells 0.0 % Sodium Level 139 mmol/L (136-145) Potassium Level 3.3 mmol/L (3.5-5.1) Chloride Level 103 mmol/L (98-107) Carbon Dioxide Level 28 mmol/L (20-31) Anion Gap 8 (5-15) Blood Urea Nitrogen 8 mg/dL (9-23) Creatinine 0.67 mg/dL (0.550-1.02) Glomerular Filtration Rate Calc 101 mL/min (>90) BUN/Creatinine Ratio 11.9 (10.0-20.0) Serum Glucose 113 mg/dL (74-106) Calcium Level 9.3 mg/dL (8.7-10.4) Total Bilirubin 0.9 mg/dL (0.2-1.0) Aspartate Amino Transferase (AST) 29 U/L (13-40) Alanine Aminotransferase (ALT) 32 U/L (7-40) Alkaline Phosphatase 84 U/L (46-116) Total Protein 6.4 g/dL (5.7-8.2) Albumin 3.8 g/dL (3.2-4.8) POC Glucose 99 mg/dl (70-106) Lipase 28 U/L (12-53) Free Thyroxine (T4) Calculated 1.82 ng/dL (0.89-1.76) Total Triiodothyronine (TT3) 2.07 ng/mL (0.60-1.81) Hepatitis B Surface Antigen Negative (Negative) Hepatitis C Antibody Negative (Negative) Lactic Acid Level 1.5 mmol/L (0.4-2.0) Test 04/15/25 16:06 04/15/25 16:03 Urine Color Light-yellow (Yellow) Urine Clarity Clear (Clear) Urine pH 7.0 (5.0-9.0) Urine Specific [place] 1.007 (1.001-1.035) Urine Protein Trace (Negative) Urine Ketones Negative (Negative) Urine Blood Negative /uL (Negative) Urine Nitrite Negative (Negative) Urine Bilirubin Negative (Negative) Urine Urobilinogen Normal mg/dL (Negative) Urine Leukocyte Esterase Negative /uL (Negative) Urine RBC <1 /hpf (0 - 4) Urine Microscopic WBC 1 /HPF (0-5) Urine Squamous Epithelial Cells Few /hpf (<5) Urine Bacteria Few /hpf (None Seen) Urine Glucose Normal mg/dL (Normal) Urine Opiates Screen Neg (NEGATIVE) Urine Fentanyl Screen Neg (NEGATIVE) Urine Barbiturates Screen Neg (NEGATIVE) Urine Phencyclidine Screen Neg (NEGATIVE) Urine Amphetamines Screen Neg (NEGATIVE) Urine Benzodiazepines Screen Neg (NEGATIVE) Urine Cocaine Screen Neg (NEGATIVE) Urine Cannabinoids Screen Neg (NEGATIVE) Hemoglobin A1c 4.9 % A1C (<5.7) Phosphorus Level 2.8 mg/dL (2.4-5.1) Magnesium Level 1.9 mg/dL (1.6-2.6) Direct Bilirubin 0.3 mg/dL (<0.3) Vitamin B12 Level 493 pg/mL (211-911) Vitamin D 25-Hydroxy 66.1 ng/mL (30.0-100) Thyroid Stimulating Hormone (TSH) < 0.01 uIU/mL (0.55-4.78) Other Laboratory Tests 04/17/25 05:04 Brief Hx & Hospital Course: The patient is a 59-year-old female with a past medical history of ischemic stroke (2007), hypertension, hyperthyroidism, morbid obesity (BMI 43.5) on Wegovy, and type 2 diabetes mellitus, who presented to the emergency department with acute onset of intractable nausea and vomiting. She reported over 30 episodes of non-bloody, non-bilious emesis beginning at 7:00 AM on the day of admission, accompanied by mild cramp-like generalized abdominal pain. She has had intermittent vomiting since initiating Wegovy four months ago, with a dose increase to 1.5 mg three months ago. On presentation, she was afebrile, tachycardic, and hypertensive. Labs revealed leukocytosis with neutrophilia, hyperglycemia, and signs of dehydration. CT abdomen/pelvis showed an enlarged presumed uterus/adnexal soft tissue density (up to 10.3 cm) and layering cholelithiasis. Urinalysis was unremarkable. She was admitted for management of acute intractable vomiting likely secondary to Wegovy, acute infectious gastroenteritis, and dehydration. She was treated with IV fluids (NS boluses and maintenance), antiemetics (Zofran), and empiric antibiotics (Metronidazole and Ceftriaxone). She was placed NPO and started on a soft diet once symptoms improved. Additional workup included a transvaginal ultrasound to evaluate the possible uterine mass. Cholelithiasis was noted without signs of cholecystitis. Her chronic conditions were managed with continuation of home medications including Propranolol, Hydralazine, Methimazole, and Eliquis. Blood glucose was monitored with mild sliding scale insulin and a consistent carbohydrate diet. Neurological exam was intact with no focal deficits. The patient remained alert and oriented throughout her hospital stay. On evaluation today, she states she is well, pain is manageable. Her vitals have remained stable for discharge home, follow up visit in discharge clinic. All medications and recommendations were thoroughly explained and the patient states he understands and agrees. Detailed discussion held with patient at bedside were all questions were answered and concerns were addressed. Examination General: The patient alert and oriented in person place and time. Patient following commands HEENT: Normocephalic, atraumatic, normal reactive pupils, EOM intact, pink conjunctiva, pink dry mucous membrane Respiratory/pulmonary: Bilateral chest expansion, no pain on palpation of chest wall, clear lungs bilaterally, vesicular murmurs present in almost all lung trejo, no associated crackles or wheezes. Cardiovascular: Tachycardia, Normal RRR, normal S1 and S2, no murmurs Abdomen: Obese, Abdomen nondistended, hyperactive bowel sounds, soft, mild pain on palpation of abdominal quadrant, no palpable masses. Extremities: No deformities, there is no peripheral edema present at the lower extremities, normal pulses Skin: No rashes or pruritus, there is no sacral edema present at this time. Neurological: Intact cranial nerves with no focal neurologic deficits Operations or Procedures PATIENT: KAITY MACKENZIE ACCT: [id number] UNIT: [id number] : 1965 LOC: [facility] ROOM / BED: 0244ADS / 2 AGE / SEX: 59 / F ADM STATUS: ADM IN SERVICE 0617 ORDERING PHYSICIAN: ALYSSA FLORES RESIDENT PROCEDURE(s): GBUS - GALLBLADDER REASON: r/o cholecystitis ORDER NUMBER(s): [id number], ACCESSION NUMBER(s): [id number] INDICATION: r/o cholecystitis. TECHNIQUE: Multiple real-time sonographic images of the abdomen were obtained. COMPARISON: None FINDINGS: The liver is increased in echogenicity. The liver measures 16.6 cm. No intrahepatic biliary ductal dilatation is noted. The gallbladder wall measures 0.2 cm and is unremarkable. There are multiple gallstones. The common duct measures 0.4 cm and is unremarkable. No pericholecystic fluid is noted. The right kidney measures 11.4 cm. No hydronephrosis. The pancreas is not well visualized due to obscuration from bowel gas. The visualized portions of the IVC and aorta are grossly unremarkable. IMPRESSION: 1. Cholelithiasis without sonographic evidence of acute cholecystitis. 2. Hepatic steatosis. PATIENT: KAITY MACKENZIE ACCT: [id number] UNIT: [id number] : 1965 LOC: [facility] ROOM / BED: [address] [place] [address] AGE / SEX: 59 / F ADM STATUS: ADM IN SERVICE 47 ORDERING PHYSICIAN: ALYSSA FLORES RESIDENT PROCEDURE(s): PELUS - PELVIC REASON: Eval possible uterine mass ORDER NUMBER(s): [id number], ACCESSION NUMBER(s): [id number] INDICATION: Eval possible uterine mass TECHNIQUE: Multiple real-time grayscale transabdominal sonographic images along with color and duplex Doppler of the uterus and ovaries were obtained. COMPARISON: None FINDINGS: The uterus measures 8.6 x 4.9 by 4.7 cm cm. The endometrial stripe measures 1.8 mm. Hypoechoic structure within the wall of the uterus measuring 2.3 x 1.8 x 2.5 cm may represent a fibroid. The right ovary not visible The left ovary not visible IMPRESSION: 1. Ovaries not visible 2. Exam difficult due to prolapsed bladder. 3. Bladder volume 356.3 mL. - PATIENT: Kaity Mackenzie ACCT: [id number] UNIT: [id number] : 1965 LOC: ER ROOM / BED: / AGE / SEX: 59 / F ADM STATUS: REG ER SERVICE 1557 ORDERING PHYSICIAN: IESHA HILLIARD MD PROCEDURE(s): ABPL - CT AB PEL WO CON-NO ORAL OR IV REASON: pain ORDER NUMBER(s): [id number], ACCESSION NUMBER(s): [id number] EXAM: CT CT AB PEL WO CON-NO ORAL OR IV INDICATION: pain TECHNIQUE: Volumetric multidetector CT images of the abdomen and pelvis were obtained without contrast. All CT scans at this facility use dose modulation, iterative reconstruction, and/or weight based dosing when appropriate to reduce radiation dose to as low as reasonably achievable. COMPARISON: None FINDINGS: [LOWER CHEST]: The partially visualized lung bases are clear without a pleural effusion. The cardiac size is normal without pericardial effusion. [LIVER]: Normal hepatic size without suspicious focal lesion. [GALLBLADDER AND BILIARY TREE]: Layering cholelithiasis. [SPLEEN]: Unremarkable. [PANCREAS]: Unremarkable. [ADRENAL GLANDS]: Unremarkable [KIDNEYS]: No hydronephrosis. No nephroureterolithiasis. [BLADDER]: Decompressed [REPRODUCTIVE ORGANS]: Significant enlargement of the presumed uterus and/or adnexa with soft tissue density measuring approximately 8.8 x 10.3 x 7.8 cm. Mild stool burden. [BOWEL/MESENTERY]: Stomach is normal. No CT evidence of bowel obstruction. Mild stool burden. [ASCITES]: Absent [LYMPHADENOPATHY]: No pathologically enlarged lymph nodes by CT size criteria [VASCULATURE]: No aneurysmal dilatation. vascular calcifications. [ABDOMINAL WALL]: Unremarkable. [MUSCULOSKELETAL]: No acute fracture or aggressive focal osseous lesion. Multifocal degenerative change of the visualized spine. transitional anatomy with sacralization of the L5. IMPRESSION: 1. Significant enlargement of the presumed uterus and/or adnexa with soft tissue density measuring up to 10.3 cm. 2. Recommend further evaluation with dedicated ultrasound of the pelvis consider follow-up MRI of the pelvis with and without contrast 3. Layering cholelithiasis. - Condition at Discharge: Stable Final Diagnosis/Problems List Acute intractable vomiting due to medication side effect Morbid Obesity, BMI 43.5 kg/m2 Possible Uterine Mass Cholelithiasis without Cholecystitis Hypertension Type 2 Diabetes Mellitus, HbA1c 4.9 Hyperthyroidism Rule out Hyperthyroidism crisis History of Ischemic Stroke Discharge Disposition: Home Discharge Instruct/Medications Diet: Regular Activity: No Restrictions, As Tolerated Follow Up/Referral: Follow up with PCP in 1 week Medications: continue home medications Scheduled Amoxicillin & Pot Clavulanate (Augmentin Tablet), 875 MG PO BID Enalapril Maleate (Enalapril Maleate), 10 MG PO DAILY Hctz (Hydrochlorothiazide), 25 MG PO DAILY Hydralazine HCl (Hydralazine HCl), 50 MG PO TID Methimazole (Methimazole), 5 MG PO DAILY Propranolol HCl (Propranolol Hydrochloride), 80 MG PO DAILY Discharge Statement: "Patient was advised to return to the ER or call 911 if any headaches, dizziness, shortness of breath, chest pain, abdominal pain, bleeding, fevers, or worsening of medical condition. Patient was counseled about treatment plan, medications, possible side effects, patientverbalized understanding. All questions were answered to the best of my ability. This discharge took greater then 30 minutes in planning, reviewing documentation, counseling the patient, and discussing with other team members." ASSESSMENT ASSESSMENT Assessment Acute intractable vomiting due to medication side effect Morbid Obesity, BMI 43.5 kg/m2 Possible Uterine Mass Cholelithiasis without Cholecystitis Hypertension Type 2 Diabetes Mellitus, HbA1c 4.9 Hyperthyroidism Rule out Hyperthyroidism crisis History of Ischemic Stroke Date of Service: Apr 17, 2025 Billing Provider: JOSE J STAUFFER MD Common Visit Codes: [id number] DISCH DAY >30min KENA TURNER Apr 17, 2025 10:35 JOSE J STAUFFER MD Apr 18, 2025 07:08
[2025-04-17] MEDS ORDERED: HYDR25TA5 PO (11:12)
[2025-04-17] MEDS ORDERED: METH5TAB98 PO (11:12)
[2025-04-17] MEDS ORDERED: PROP1TAB53 PO (11:12)
[2025-04-17] MEDS ORDERED: AUG875T PO (11:12)
[2025-04-17] MEDS ORDERED: HYDR25TA87 PO (11:12)
[2025-04-17] MEDS ORDERED: ENAL1TAB47 PO (11:12)
[2025-04-17 12:05] VITALS: BP 127/81; PULSE 81; TEMP 36.8
[2025-04-17] MEDS: ACCU-CHEK COMFORT CURVE STRIP VI SCH (12:43)
[2025-04-17] MEDS: InsuLIN REG 1unit/0.01ml Soln (100units/ml) SC SCH (12:43)
[2025-04-17 13:39] VITALS: BP 102/64; PULSE 80; RESP 16; TEMP 98.4; O2SAT 95
== END 2025-04-17 14:37 | disposition home or self-care (01) | DRG 251 ==
LOC: EDBD 15:42 → ER 15:42 → OVERFLOW 20:48 → EAST 20:58 → OVERFLOW 20:58 → EAST 23:55
PROVIDERS: ADMIT Internal Medicine; ATTEND Internal Medicine
DX: R10.84 Generalized abdominal pain (principal); E05.90 Thyrotoxicosis, unspecified without thyrotoxic crisis or storm; E11.9 Type 2 diabetes mellitus without complications; K80.20 Calculus of gallbladder without cholecystitis without obstruction; I10 Essential (primary) hypertension; E86.0 Dehydration; R19.00 Intra-abdominal and pelvic swelling, mass and lump, unspecified site; T38.3X5A Adverse effect of insulin and oral hypoglycemic [antidiabetic] drugs, initial encounter; E66.01 Morbid (severe) obesity due to excess calories; Z86.73 Personal history of transient ischemic attack (TIA), and cerebral infarction without residual deficits; Z98.891 History of uterine scar from previous surgery; Z98.51 Tubal ligation status; Z68.41 Body mass index [BMI] 40.0-44.9, adult; Y92.89 Other specified places as the place of occurrence of the external cause
CPT/HCPCS: 36415; 74176; 76705; 76856; 80048; 80053; 80076; 80307; 81001; 82306; 82607; 82962; 83036; 83605; 83690; 83735; 84100; 84439; 84443; 84480; 85025; 86803; 87040; 87340; G0378; J1815; J1885; J2405; J2470; J3490